=== PATIENT | female | born 1995 | race Caucasian/White ===

== ENCOUNTER 2020-09-28 08:42 | Emergency (ER) | payer OTHER ==
[~2020-09-28] VITALS: Ht 162.6 cm; Wt 86.4 kg
[~2020-09-28 08:42] MED LIST: NAPROSYN500 MG PO
[2020-09-28 08:46] VITALS: BP 125/68; TEMP 98.7
[2020-09-28] MEDS ORDERED: MOTRIN 400400 MG/TAB PO (09:18)
[2020-09-28] MEDS ORDERED: FIORICET 325 MG1 TA1 PO (09:18)
[2020-09-28 09:28] VITALS: PULSE 96
== END 2020-09-28 09:28 | disposition home or self-care (01) ==
LOC: COL.ER 08:42
DX: R51.9 Headache, unspecified (principal); M54.9 Dorsalgia, unspecified; N83.209 Unspecified ovarian cyst, unspecified side; R00.0 Tachycardia, unspecified; Z88.0 Allergy status to penicillin; Z88.1 Allergy status to other antibiotic agents; Z88.2 Allergy status to sulfonamides; Z79.1 Long term (current) use of non-steroidal anti-inflammatories (NSAID)